=== PATIENT | female | born 1985 | race Caucasian/White ===

== ENCOUNTER → 2020-10-27 13:48 | Outpatient (BNVA) | payer BC, SELFPAY | PROVIDERS: Family Provider Nurse Practitioner; PCP Nurse Practitioner; Visit Provider Psychiatry & Neurology Psychiatry | DX: F41.1 Generalized anxiety disorder (principal); F10.21 Alcohol dependence, in remission; F12.21 Cannabis dependence, in remission | CPT/HCPCS: 99204 ==

== ENCOUNTER → 2020-12-12 08:20 | Outpatient (BNVA) | payer BC, SELFPAY | PROVIDERS: Family Provider Nurse Practitioner; PCP Nurse Practitioner; Visit Provider Psychiatry & Neurology Psychiatry | DX: F41.1 Generalized anxiety disorder (principal); F12.21 Cannabis dependence, in remission; F10.21 Alcohol dependence, in remission | CPT/HCPCS: 99214 ==

== ENCOUNTER → 2021-01-15 08:07 | Outpatient (BNVA) | payer BC, SELFPAY | PROVIDERS: Family Provider Nurse Practitioner; PCP Nurse Practitioner; Visit Provider Psychiatry & Neurology Psychiatry | DX: F41.1 Generalized anxiety disorder (principal); F12.21 Cannabis dependence, in remission; F10.21 Alcohol dependence, in remission | CPT/HCPCS: 99214 ==

== ENCOUNTER → 2021-02-13 13:20 | Outpatient (BNVA) | payer BC, SELFPAY | PROVIDERS: Family Provider Nurse Practitioner; PCP Nurse Practitioner; Visit Provider Psychiatry & Neurology Psychiatry | DX: F41.1 Generalized anxiety disorder (principal); F12.21 Cannabis dependence, in remission; F10.21 Alcohol dependence, in remission | CPT/HCPCS: 99214 ==

== ENCOUNTER → 2021-03-20 11:12 | Outpatient (BNVA) | payer BC, SELFPAY | PROVIDERS: Family Provider Nurse Practitioner; PCP Nurse Practitioner; Visit Provider Psychiatry & Neurology Psychiatry | DX: F41.1 Generalized anxiety disorder (principal); F12.21 Cannabis dependence, in remission; F10.21 Alcohol dependence, in remission | CPT/HCPCS: 99213 ==

== ENCOUNTER 2022-12-28 14:57 | Emergency (ER) | payer MEDICAID, SELFPAY ==
[2022-12-28 15:03] VITALS: BP 119/85; PULSE 102; RESP 18; TEMP 37; O2SAT 94
--- NOTE | 2022-12-28 15:16 | XRR_ITS ---
PROCEDURE INFORMATION: Exam: XR Left Elbow Exam date and time: 12/28/2022 3:31 PM Age: 37 years old Clinical indication: Injury or trauma; Fall; Blunt trauma (contusions or hematomas); Elbow; Left; Injury date: Yesterday; Additional info: Pain; Fall TECHNIQUE: Imaging protocol: Radiologic exam of the Left elbow. Views: 3 or more views. COMPARISON: No relevant prior studies available. FINDINGS: Bones/joints: Osseous structures are intact. Negative for fracture. Joint spaces are preserved. Soft tissues: Normal. XR/XR elbow LT min 3V* 29230 IMPRESSION: No acute findings.
--- NOTE | 2022-12-28 15:23 | W.ED.ALCOHOL ---
HPI - Alcohol General: Chief Complaint: Alcohol Stated Complaint: AMS/ SUSPECTED ETOH Time Seen by Provider: 12/28/22 15:03 Source: patient and EMS Mode of arrival: EMS Limitations: other (Alcohol intoxication.) History of Present Illness: See nursing assessment. Patient brought in for alcohol intoxication. She denies any problems right now. She does complain of left elbow pain after fall yesterday. She denies any head trauma or headache. She denies any neck pain or neck trauma. She denies any pain to the back chest abdomen and pelvis or the remainder of her extremities. She states she drank heavily over the last 24 hours. She states she does not drink every day. However, patient claims she did have a seizure after alcohol withdrawal about 2 years ago. See medication list. She denies taking any extra medication. She denies any suicidal or homicidal ideations. She denies any thoughts of harming herself. She does drink alcohol to get drunk. Associated symptoms: Deny abdominal pain, nausea or vomiting Review of Systems Const: Denies: fever(s) or chills Eyes: Denies: change in vision ENMT: Denies: throat pain Card: Denies: chest pain or palpitations Resp: Denies: dyspnea or wheezing GI: Denies: abdominal pain, nausea or vomiting : Denies: flank pain Musc: Denies: neck pain or back pain Skin/Breast: Denies: rash or pruritus Neuro: Reports: other (Patient with moderate alcohol intoxication); Denies: headache(s) or numbness in extremities Psych: Denies: anxiety Nicho/Lymph: Denies: enlarged lymph nodes PFS ED PFSH: Medical History (Updated 12/28/22 @ 17:44 by Roby Briones MD) Alcohol use disorder, severe, in early remission, dependence Cannabis use disorder, severe, in early remission, dependence Major depressive disorder, single episode Psychiatric care Social History (Updated 02/13/21 @ 13:34 by Denis Santiago LPN) Smoking and tobacco status: current every day smoker e-cigarettes E-Cigarette Details: with nicotine E-cig/vape details: 2-3 x /hr - 50 mg/30/ml Quit status (tobacco): has tried quititng Number of times tried to quit tobacco: 4 Second hand smoke exposure: No Current gender identity: Female Physical Exam Const: COMMON NORMALS: no acute distress, patient oriented x3 and well nourished GENERAL APPEARANCE: cooperative HENMT: COMMON NORMALS: normocephalic and atraumatic HEAD & SCALP: normocephalic and atraumatic FACE & SINUS: normal facial exam Eye: COMMON NORMALS: EOMs intact bilaterally Neck/C-Spine: COMMON NORMALS: full ROM, no lymphadenopathy, supple and no meningeal signs GENERAL: Yes normal visual inspection Lymph: LYMPHATIC: no lymphadenopathy noted Chest: COMMONS NORMALS: normal inspection of the chest and normal palpation of entire chest wall CHEST: No Ecchymosis present and No rash Resp: COMMON NORMALS: normal respiratory effort, No retractions and clear to auscultation bilaterally EFFORT & INSPECTION: No respiratory distress AUSCULTATION: clear to auscultation bilaterally Cardio: COMMON NORMALS: regular rhythm and Peripheral pulses 2+ throughout JUGULAR VENOUS DISTENTION: no JVD RATE: tachycardic (Mild) RHYTHM: regular rhythm PERIPHERAL PULSES: Peripheral pulses 2+ throughout GI: COMMON NORMALS: Normal to inspection, nondistended, normoactive bowel sounds present and non-tender : COMMON NORMALS: Yes no CVA tenderness BLADDER/KIDNEY EXAM: Yes no CVA tenderness Back/Pelvis: COMMON NORMALS: no CVA tenderness Extremity: COMMON NORMALS: full ROM and capillary refill normal OTHER: Superficial abrasion and recent ecchymosis to left olecranon. Normal range of motion of left elbow without pain or crepitus. No soft tissue swelling. Neuro: COMMON NORMALS: patient oriented x3, CN's II-XII intact bilaterally, no focal motor deficits and no sensory deficits noted MENINGEAL SIGNS: Yes no meningeal signs Psych: COMMON NORMALS: mental status grossly normal and Normal thought process present THOUGHT PROCESS: Normal thought process present Skin: COMMON NORMALS: no rashes or lesions noted GENERAL SKIN EXAM: no rashes or lesions noted OTHER: Ecchymosis and superficial abrasion to the left olecranon area. Course Vital Signs: Vital signs: Vital Signs Temperature 98.6 F 12/28/22 15:03 Pulse Rate 105 H 12/28/22 20:36 Respiratory Rate 16 12/28/22 19:07 Blood Pressure 124/81 12/28/22 20:36 Pulse Oximetry 95 12/28/22 20:36 Oxygen Delivery Me thod 12/28/22 20:36 MDM - Alcohol Medical Decision Making Patient with alcohol intoxication. Present alcohol level is 427. Patient does have a history of seizures with alcohol withdrawal. Patient will need to be observed in the hospital overnight. 1741: Paged Dr. uMrray about observation. 1803: D/w Dr. Murray. He states patient can stay in the emergency room and become more sober and then be discharged in the emergency room. He states patient does not need to be admitted to the hospital at this time. Therefore, we will hold the patient to emergency room. 2049: Patient much more alert now. She is not as intoxicated. She is talking clearly. We will recheck alcohol level. 2139: Patient much improved. Alcohol level now is 270. Patient is awake and alert. She is obviously used to high alcohol levels. I think patient is safe to go home this point I did discuss with her that I will write prescriptions for her for alcohol withdrawal to fill tomorrow. Lab Data 12/28/22 15:32 12/28/22 15:32 Radiology Impressions Elbow X-Ray 12/28/22 15:16 IMPRESSION: No acute findings. Laboratory Results WBC 8.3 10^3/uL (4.0-10.0) 12/28/22 15:32 RBC 4.42 10^6/uL (4.1-5.3) 12/28/22 15:32 Hgb 13.2 g/dL (11.5-15.3) 12/28/22 15:32 Hct 38.8 % (37.0-47.0) 12/28/22 15: MCV 87.8 fl (81-99) 12/28/22 15:32 MCH 29.9 pg (28.0-34.0) 12/28/22 15:32 MCHC 34.0 g/dL (30.0-36.0) 12/28/22 15:32 RDW 14.2 % (12.1-15.1) 12/28/22 15:32 Plt Count 266 10^3/cmm (130-400) 12/28/22 15:32 MPV 8.5 fL (7.4-10.4) 12/28/22 15:32 Neut % (Auto) 61.8 % 12/28/22 15:32 Lymph % (Auto) 31.9 % 12/28/22 15:32 [place] % (Auto) 5.1 % 12/28/22 15:32 Eos % (Auto) 0.4 % 12/28/22 15:32 Baso % (Auto) 0.4 % 12/28/22 15:32 Neut # (Auto) 5.11 10^3/uL (1.8-7.7) 12/28/22 15:32 Lymph # (Auto) 2.6 10^3/uL (0.8-4.8) 12/28/22 15:32 [place] # (Auto) 0.4 10^3/uL (0.2-0.9) 12/28/22 15:32 Eos # (Auto) 0.0 10^3/uL (0.0-0.8) 12/28/22 15:32 Baso # (Auto) 0.0 10^3/uL (0.0-0.1) 12/28/22 15:32 Nucleated RBC % (auto) 0 % 12/28/22 15:32 Nucleated RBCs # 0.0 /100WBC 12/28/22 15:32 Sodium 146 mmol/L (136-145) H 12/28/22 15:32 Potassium 3.5 mmol/L (3.5-5.1) 12/28/22 15:32 Chloride 107 mmol/L (98-107) 12/28/22 15:32 Carbon Dioxide 25 mmol/L (22-29) 12/28/22 15:32 Anion Gap 17.5 (5-19) 12/28/22 15:32 BUN 12 mg/dL (6-20) 12/28/22 15:32 Creatinine 0.5 mg/dL (0.5-0.9) 12/28/22 15:32 GFR Calculation 137.4 mL/min (90-130) H 12/28/22 15:32 Glucose 124 mg/dL (65-115) H 12/28/22 15:32 Calculated Osmolality 303 mOsm/kg (285-295) H 12/28/22 15:32 Calcium 7.8 mg/dL (8.5-10.5) L 12/28/22 15:32 Total Bilirubin 0.3 mg/dL (0.15-1.2) 12/28/22 15:32 AST 52 U/L (0-32) H 12/28/22 15:32 ALT 37 U/L (0-33) H 12/28/22 15:32 Alkaline Phosphatase 118 U/L (35-105) H 12/28/22 15:32 Total Protein 6.1 g/dL (6.6-8.7) L 12/28/22 15:32 Albumin 3.5 g/dL (3.5-5.2) 12/28/22 15:32 Globulin 2.6 g/dL (1.3-4.6) 12/28/22 15:32 HCG, Qual Negative (Negative) 12/28/22 15:32 Salicylates < 0.3 mg/dL (3-10) L 12/28/22 15:32 Acetaminophen < 5.0 ug/mL (10-30) L 12/28/22 15:32 Ethyl Alcohol 274 mg/dL (0-10) H 12/28/22 21:00 Imaging Data Xray Ortho: Radiologist's impression: Procedure(s): XR elbow LT min 3V* [id number] Accession Number(s): [id number] Report Number: [id number] PROCEDURE INFORMATION: Exam: XR Left Elbow Exam date and time: 12/28/2022 3:31 PM Age: 37 years old Clinical indication: Injury or trauma; Fall; Blunt trauma (contusions or hematomas); Elbow; Left; Injury date: Yesterday; Additional info: Pain; Fall TECHNIQUE: Imaging protocol: Radiologic exam of the Left elbow. Views: 3 or more views. COMPARISON: No relevant prior studies available. FINDINGS: Bones/joints: Osseous structures are intact. Negative for fracture. Joint spaces are preserved. Soft tissues: Normal. XR/XR elbow LT min 3V* [id number] IMPRESSION: No acute findings. ? Dictated By: Barrie Cantu DO Signed By: Barrie Cantu DO Signed Date/Time: 12/28/22 1552 EKG Data EKG 1: Other EKG changes: Patient refused EKG. Discharge Plan Discharge Patient Disposition: Home Clinical Impression: Alcoholic intoxication Qualifiers: Complication of substance-induced condition: uncomplicated Qualified Code(s): F10.920 - Alcohol use, unspecified with intoxication, uncomplicated Contusion of elbow, left Qualifiers: Encounter type: initial encounter Qualified Code(s): S50.02XA - Contusion of left elbow, initial encounter Condition: Stable Prescriptions: New thiamine HCl (vitamin B1) 100 mg tablet 50 mg PO DAILY Qty: 10 1RF chlordiazepoxide HCl 25 mg capsule 25 mg PO Q6H PRN (Reason: anxiety) Qty: 12 0RF Rx Instructions: Do not take with alcohol. No Action naltrexone 50 mg tablet 50 mg PO DAILY Qty: 30 2RF hydroxyzine HCl 50 mg tablet 50 mg PO BID Qty: 60 2RF prazosin 2 mg capsule 2 mg PO .at bedtime Qty: 30 2RF fluoxetine [Prozac] 40 mg capsule 40 mg PO DAILY Qty: 30 2RF Discharge Orders: Discharge ED (Routine); Ordered 12/28/22 Ordered By: Roby Briones Referrals: Huyen Negron, PSYCHOTHERAPIST SOCIAL WORKER-C [Primary Care Provider] - 1-3 days Discharge Diet: Advance as tolerated Discharge Activity: Increase activity as tolerated Patient Instructions: Alcohol Intoxication (ED), Abuse of Alcohol (ED), Contusion in Adults (ED) Activity Restrictions/Additional Instructions: Avoid alcohol use. May take Librium every 6 hours as needed for anxiety. Take thiamine once daily. Drink plenty fluids. X-rays of your left elbow were negative for fracture or dislocation. Follow-up with family doctor as needed. Coding Level of Care Code ED Supervisor Public Message Service for Yessi Garnica
--- NOTE | 2022-12-28 15:37 | PC.NURSE ---
PATIENT REFUSED EKG. PROVIDER NOTIFIED.
--- NOTE | 2022-12-28 15:37 | PC.NURSE ---
NURSE ATTEMPTED TO START IV. PATIENT FLINCHED AWAY FROM NURSE AND IV START AND IV ACCESS WAS LOST. PATIENT STATED THAT NURSE WOULD NOT START ANOTHER IV AND CALLED STATED THAT NURSE WAS BEING A BITCH. CHARGE NURSE NOTIFIED AND STARTED IV ACCESS.
[2022-12-28 15:43] LABS: Basophils % 0.4 %; Eosinophils % 0.4 %; Hematocrit 38.8 % (37.0-47.0); Hemoglobin 13.2 g/dL (11.5-15.3); Lymphocytes # 2.6 10^3/uL (0.8-4.8); Lymphocytes % 31.9 %; Mean Corpuscular Hemoglobin 29.9 pg (28.0-34.0); Mean Corpuscular Volume 87.8 fl (81-99); Mean Platelet Volume 8.5 fL (7.4-10.4); Monocytes # 0.4 10^3/uL (0.2-0.9); Monocytes % 5.1 %; Neutrophils # 5.11 10^3/uL (1.8-7.7); Neutrophils % 61.8 %; Nucleated Red Blood Cells % 0 %; Platelet Count 266 10^3/cmm (130-400); Red Blood Count 4.42 10^6/uL (4.1-5.3); Red Cell Distribution Width 14.2 % (12.1-15.1); White Blood Count 8.3 10^3/uL (4.0-10.0)
[2022-12-28 16:09] LABS: Alanine Aminotransferase 37 U/L (0-33); Albumin Level 3.5 g/dL (3.5-5.2); Alkaline Phosphatase 118 U/L (35-105); Anion Gap 17.5 (5-19); Aspartate Amino Transferase 52 U/L (0-32); Blood Urea Nitrogen 12 mg/dL (6-20); Calcium 7.8 mg/dL (8.5-10.5); Carbon Dioxide 25 mmol/L (22-29); Chloride 107 mmol/L (98-107); Globulin 2.6 g/dL (1.3-4.6); Glomerular Filtration Rate 137.4 mL/min (90-130); Glucose 124 mg/dL (65-115); Osmolality Calculated 303 mOsm/kg (285-295); Potassium 3.5 mmol/L (3.5-5.1); Sodium 146 mmol/L (136-145); Total Bilirubin 0.3 mg/dL (0.15-1.2); Total Protein 6.1 g/dL (6.6-8.7)
[2022-12-28 16:11] LABS: Acetaminophen < 5.0 ug/mL (10-30); Salicylate < 0.3 mg/dL (3-10)
[2022-12-28 16:12] LABS: Alcohol Level 427 mg/dL (0-10)
[2022-12-28] MEDS: folic acid 1 MG, multivitamin inj 10 ML, thiamine 100 MG in sodium chloride 0.9% 1,000 ML 1000 MG IV (16:12)
[2022-12-28 16:36] LABS: HCG, Serum Qual Negative (Negative)
[2022-12-28 16:46] VITALS: PULSE 89; RESP 16; O2SAT 96
[2022-12-28] MEDS: lactated ringers 1,000 ML 999 ML IV (18:24)
[2022-12-28 19:07] VITALS: PULSE 83; RESP 16; O2SAT 96
[2022-12-28 20:36] VITALS: BP 124/81; PULSE 105; O2SAT 95
[2022-12-28 21:27] LABS: Alcohol Level 274 mg/dL (0-10)
[2022-12-28 22:56] VITALS: BP 123/73; PULSE 115; O2SAT 98
== END 2022-12-28 22:57 | disposition home or self-care (01) ==
PROVIDERS: Emergency Provider Family Medicine; PCP Nurse Practitioner
DX: F10.920 Alcohol use, unspecified with intoxication, uncomplicated (principal); S50.02XA Contusion of left elbow, initial encounter; F17.290 Nicotine dependence, other tobacco product, uncomplicated; W19.XXXA Unspecified fall, initial encounter; Y90.8 Blood alcohol level of 240 mg/100 ml or more
CPT/HCPCS: 36415; 73080; 80053; 80307; 84703; 85025; 96360; 96361; 99285; J3411; J3490; J7030; J7120

== ENCOUNTER 2022-12-29 03:38 | Inpatient (IN) | payer MEDICAID, SELFPAY ==
[2022-12-29] VITALS (33 sets, daily range): BP systolic 103–155; BP diastolic 60–99; PULSE 74–143; RESP 16–32; TEMP 36.2–37.3; O2SAT 90–98; BMI 34.3; BMI 37.5
--- NOTE | 2022-12-29 03:42 | XRR_ITS ---
PROCEDURE INFORMATION: Exam: XR Chest Exam date and time: 12/29/2022 3:49 AM Age: 37 years old Clinical indication: Chest pressure; Patient HX: C/O chest pain. Tachycardic on monitor. ; Additional info: CO TECHNIQUE: Imaging protocol: Radiologic exam of the chest. Views: 1 view. COMPARISON: No relevant prior studies available. FINDINGS: Lungs: No consolidation. Pleural spaces: No pleural effusion. No pneumothorax. Heart/Mediastinum: No cardiomegaly. Bones/joints: No acute fracture. XR/XR chest 1V portable [id number] IMPRESSION: No acute cardiopulmonary findings.
--- NOTE | 2022-12-29 03:44 | ECG_ITS ---
[facility] Test Date: 2022-12-29 Pat Name: Priya Morataya Department: Room: ICU11 Gender: Female Pattern Illustrator: : 1985 Requested By: Mona Graham Order Number: [id number] Sabi MD: Leila Westfall M.D. Measurements Intervals [place] Rate: 143 P: 50 MO: 125 QRS: -14 QRSD: 79 T: 47 QT: 294 QTc: 454 Interpretive Statements SINUS TACHYCARDIA POSSIBLE ANTERIOR MYOCARDIAL INFARCTION , PROBABLY OLD [30 ms Q WAVE IN V3/V4, OR R < 0.2 mV IN V4] No previous ECG available for comparison Electronically Signed On 12-29-2022 12:54:32 DRY CLEANER HELPER by Leila Westfall M.D. [id number]
--- NOTE | 2022-12-29 03:44 | W.ED.CHESTPA ---
HPI - Chest Pain General: Chief Complaint: Chest Pain Stated Complaint: cp Time Seen by Provider: 12/29/22 03:40 Source: patient Mode of arrival: ambulatory Limitations: no limitations History of Present Illness: 37-year-old female is a chronic alcoholic states she has been sober and has been binge drinking again for the last 2 weeks she was seen here yesterday for alcohol intoxication she states that she has not had a drink since yesterday she states that she started having some palpitations along with a tremor and chest pain. She denies any vomiting states the pain is across her chest and is fluttering in nature. She denies any worsening proving factors. Denies any fever. Associated symptoms: Reports palpitations; Deny abdominal pain, dyspnea, fever(s), nausea or vomiting Review of Systems Const: Denies: fever(s), chills, body aches or change in appetite Eyes: Denies: blurry vision or eye discomfort ENMT: Denies: throat pain or dental pain Card: Reports: chest pain and palpitations Resp: Denies: dyspnea GI: Denies: abdominal pain, nausea, vomiting or diarrhea : Denies: dysuria Musc: Denies: neck pain or back pain Skin/Breast: Denies: rash Neuro: Denies: headache(s) Psych: Denies: depression Nicho/Lymph: Denies: easy bruising All/Imm: Denies: urticaria PFSH ED PFSH: Medical History Alcohol use disorder, severe, in early remission, dependence Cannabis use disorder, severe, in early remission, dependence Major depressive disorder, single episode Psychiatric care Social History Smoking and tobacco status: current every day smoker e-cigarettes E-Cigarette Details: with nicotine E-cig/vape details: 2-3 x /hr - 50 mg/30/ml Quit status (tobacco): has tried quititng Number of times tried to quit tobacco: 4 Second hand smoke exposure: No Current gender identity: Female Physical Exam Const: COMMON NORMALS: patient oriented x3 GENERAL APPEARANCE: ill appearing HENMT: COMMON NORMALS: normocephalic and atraumatic HEAD & SCALP: normocephalic and atraumatic Eye: COMMON NORMALS: Equal, round and reactive pupils present and EOMs intact bilaterally PUPIL: Yes Equal, round and reactive pupils present Neck/C-Spine: COMMON NORMALS: full ROM and supple Chest: COMMONS NORMALS: normal inspection of the chest and normal palpation of entire chest wall Resp: COMMON NORMALS: normal respiratory effort, No retractions, No use of accessory muscles and clear to auscultation bilaterally AUSCULTATION: clear to auscultation bilaterally Cardio: COMMON NORMALS: regular rhythm and No murmurs present (Cardio) RATE: tachycardic RHYTHM: regular rhythm GI: COMMON NORMALS: Normal to inspection, nondistended, normoactive bowel sounds present, Soft to palpation, non-tender and no masses PALPATION: Yes Soft to palpation Extremity: COMMON NORMALS: normal to inspection and full ROM Neuro: COMMON NORMALS: patient oriented x3, moves all extremities and no focal motor deficits Psych: COMMON NORMALS: mental status grossly normal, Normal thought process present and cooperative THOUGHT PROCESS: Normal thought process present Skin: COMMON NORMALS: no rashes or lesions noted and no wounds GENERAL SKIN EXAM: no rashes or lesions noted Course Vital Signs: Vital signs: Vital Signs Temperature 97.1 F L 12/29/22 03:51 Pulse Rate 127 H 12/29/22 04:54 Respiratory Rate 16 12/29/22 04:54 Blood Pressure 155/68 12/29/22 04:54 Pulse Oximetry 98 12/29/22 04:54 Oxygen Delivery Me thod 12/29/22 04:54 MDM - Chest Pain Medical Decision Making Patient presents here in alcohol withdrawal she is tremors tachycardia she is given multiple dose of Ativan some improvement in her tachycardia its in the 120s currently. Her alcohol level is down to 75 from the 400s yesterday she also has a leukocytosis that is new from yesterday as well I believe is from stress reaction from her withdrawals. Spoke to the hospitalist will admit the ICU. Lab Data 12/29/22 03:50 12/29/22 03:50 Radiology Impressions Chest X-Ray 12/29/22 03:42 IMPRESSION: No acute cardiopulmonary findings. Laboratory Results WBC 27.5 10^3/uL (4.0-10.0) H 12/29/22 03:50 RBC 3.98 10^6/uL (4.1-5.3) L 12/29/22 03:50 Hgb 12.0 g/dL (11.5-15.3) 12/29/22 03:50 Hct 35.4 % (37.0-47.0) L 12/29/22 03:50 MCV 88.9 fl (81-99) 12/29/22 03:50 MCH 30.2 pg (28.0-34.0) 12/29/22 03:50 MCHC 33.9 g/dL (30.0-36.0) 12/29/22 03:50 RDW 14.0 % (12.1-15.1) 12/29/22 03:50 Plt Count 301 10^3/cmm (130-400) 12/29/22 03:50 MPV 9.2 fL (7.4-10.4) 12/29/22 03:50 Lymph % (Auto) Not Reportable 12/29/22 03:50 [place] % (Auto) Not Reportable 12/29/22 03:50 Lymph # (Auto) Not Reportable 12/29/22 03:50 [place] # (Auto) Not Reportable 12/29/22 03:50 Total Counted 100 (0-100) 12/29/22 03:50 Atypical Lymphs % Not Reportable 12/29/22 03:50 Segmented Neutrophils 86 % 12/29/22 03:50 Abs Segm Neuts (Man) 23.7 10/cmm (1.6-7.1) H 12/29/22 03:50 Band Neutrophils 3.0 % 12/29/22 03:50 Abs Band Neuts (Man) 0.8 10^3/cmm (0.0-1.2) 12/29/22 03:50 Lymphocytes (Manual) 8 % 12/29/22 03:50 Monocytes (Manual) 2.0 % 12/29/22 03:50 Absolute Monocytes 0.6 10^3/cmm (0.1-0.6) 12/29/22 03:50 Eosinophils (Manual) 1 % 12/29/22 03:50 Absolute Eosinophils 0.2 10^3/cmm (0.0-0.7) 12/29/22 03:50 Basophils (Manual) Not Reportable 12/29/22 03:50 Toxic Granulation 1+ H 12/29/22 03:50 Platelet Estimate Not Reportable 12/29/22 03:50 Sodium 140 mmol/L (136-145) 12/29/22 03:50 Potassium 3.5 mmol/L (3.5-5.1) 12/29/22 03:50 Chloride 100 mmol/L (98-107) 12/29/22 03:50 Carbon Dioxide 18 mmol/L (22-29) L 12/29/22 03:50 Anion Gap 25.5 (5-19) H 12/29/22 03:50 BUN 14 mg/dL (6-20) 12/29/22 03:50 Creatinine 0.6 mg/dL (0.5-0.9) 12/29/22 03:50 GFR Calculation 111.3 mL/min (90-130) 12/29/22 03:50 Glucose 148 mg/dL (65-115) H 12/29/22 03:50 Calculated Osmolality 293 mOsm/kg (285-295) 12/29/22 03:50 Calcium 7.2 mg/dL (8.5-10.5) L 12/29/22 03:50 Total Bilirubin 0.7 mg/dL (0.15-1.2) 12/29/22 03:50 AST 86 U/L (0-32) H 12/29/22 03:50 ALT 45 U/L (0-33) H 12/29/22 03:50 Alkaline Phosphatase 112 U/L (35-105) H 12/29/22 03:50 Troponin T Baseline 6 ng/L (0-10) 12/29/22 03:50 Total Protein 6.0 g/dL (6.6-8.7) L 12/29/22 03:50 Albumin 3.5 g/dL (3.5-5.2) 12/29/22 03:50 Globulin 2.5 g/dL (1.3-4.6) 12/29/22 03:50 Lipase 16 U/L (13-60) 12/29/22 03:50 Ethyl Alcohol 75 mg/dL (0-10) H 12/29/22 03:50 EKG Data EKG 1: I personally reviewed and interpreted this EKG as follows: EKG interpretation date: 12/29/22 EKG interpretation time: 03:44 Interpretation: sinus tach hr [address] or t wave abonrmalities qrs 79 qtc 377 Critical Care Time Critical Care Time: Critical Care Time: Yes Total Critical Care Time: 40 Attestation: The high probability of a clinically significant, sudden or life threatening deterioration of the patient's cvsystem(s) required my full and direct attention, intervention and personal management. The critical care time is as shown. This time is in addition to time spent performing any reported procedures but includes the following: [x] Data and vital sign review and interpretation [x] Patient assessment, examination and intervention [x] Documentation [x] Medication orders and management Discharge Plan Discharge Patient Disposition: Admitted As Inpatient Clinical Impression: Alcohol withdrawal Condition: Stable Coding Level of Care Code ED Monogram Technician for Yessi Garnica
[2022-12-29] MEDS: multivitamin therapeutic Tablet 1 TAB PO ×2 (03:50→08:54)
[2022-12-29] MEDS: LORazepam 2 mg/mL INJ 1 mL IVP ×7 (03:50→21:30)
[2022-12-29] MEDS: sodium chloride 0.9% 1,000 ML 999 ML IV (03:50)
[2022-12-29 04:19] LABS: Alanine Aminotransferase 45 U/L (0-33); Albumin Level 3.5 g/dL (3.5-5.2); Alcohol Level 75 mg/dL (0-10); Alkaline Phosphatase 112 U/L (35-105); Anion Gap 25.5 (5-19); Aspartate Amino Transferase 86 U/L (0-32); Blood Urea Nitrogen 14 mg/dL (6-20); Calcium 7.2 mg/dL (8.5-10.5); Carbon Dioxide 18 mmol/L (22-29); Chloride 100 mmol/L (98-107); Globulin 2.5 g/dL (1.3-4.6); Glomerular Filtration Rate 111.3 mL/min (90-130); Glucose 148 mg/dL (65-115); Lipase 16 U/L (13-60); Osmolality Calculated 293 mOsm/kg (285-295); Potassium 3.5 mmol/L (3.5-5.1); Sodium 140 mmol/L (136-145); Total Bilirubin 0.7 mg/dL (0.15-1.2)
[2022-12-29 04:20] LABS: Troponin(5th) Baseline 6 ng/L (0-10)
[2022-12-29 04:25] LABS: Hematocrit 35.4 % (37.0-47.0); Mean Corpuscular HGB Conc 33.9 g/dL (30.0-36.0); Mean Corpuscular Hemoglobin 30.2 pg (28.0-34.0); Mean Corpuscular Volume 88.9 fl (81-99); Mean Platelet Volume 9.2 fL (7.4-10.4); Platelet Count 301 10^3/cmm (130-400); Red Blood Count 3.98 10^6/uL (4.1-5.3); White Blood Count 27.5 10^3/uL (4.0-10.0)
[2022-12-29 04:47] LABS: Absolute Segmented Neutrophil 23.7 10/cmm (1.6-7.1); Band Neutrophils Absolute 0.8 10^3/cmm (0.0-1.2); Segmented Neutrophils 86 %; Total Cells Counted 100 (0-100)
[2022-12-29 04:48] LABS: Absolute Eosinophils 0.2 10^3/cmm (0.0-0.7); Eosinophils 1 %; Lymphocytes 8 %; Monocytes Absolute 0.6 10^3/cmm (0.1-0.6); Toxic Granulation 1+
[2022-12-29 05:08] LABS: Ketone (Acetest) Serum Negative (Negative)
--- NOTE | 2022-12-29 05:14 | PM.HP ---
Providers/Chief Complaint Primary Care Provider: SHIVA Andersen Chief Complaint: cp History of Present Illness Priya Morataya is a 37 year old female With past medical history of alcohol abuse disorder, was discharged yesterday from the ER after being managed for alcohol intoxication She is a resident of [place] and was walking back home, as she had no ride.She came back to the ER as she was not feeling well. When I interacted with the patient she was complaining of severe headache, she was also having bilateral upper extremity tremor, she is tachycardic, tachypneic, hypertensive,ypothermic Upon arrival in the ER she was found to be tachycardic, tremulous. Pertinent labs has shown significant leukocytosis, increased anion gap metabolic acidosis, lactic acidosis. She is currently being admitted for management of alcohol withdrawal And monitoring for possibly developing DTs. Her pertinent labs: X-ray chest: No acute findings WBC 27.5, H&H 12/35, PLT : 301 Serum sodium 140 serum potassium 3.5 BUN 14 serum creatinine 0.6 serum bicarb 18 anion gap 25 lactic acid 7.8 , serum ketone negative, AST 86 ALT 45, ALP 112, urinalysis results appreciated. Patient received 1 L normal saline ,as well as thiamine and Ativan IV IN ER. Review of Systems General: Reports: 10 or more systems reviewed and unremarkable except in HPI and below Const: Denies: fever(s), chills, body aches, change in appetite or diaphoresis Card: Denies: palpitations, edema, swelling of feet/ankles, dyspnea on exertion, orthopnea or leg pain with exertion Resp: Denies: dyspnea, productive cough, wheezing or pain on inspiration GI: Denies: abdominal pain, nausea, vomiting, diarrhea or constipation : Denies: flank pain Musc: Denies: back pain, extremity pain or extremity swelling Neuro: Reports: headache(s); Denies: difficulty walking or confusion Medications/Allergies Home Medications Medication Instructions Recorded Confirmed Last Taken Type fluoxetine 40 mg capsule (Prozac) 40 mg PO DAILY #30 caps 10/27/22 10/27/22 Unknown Rx hydroxyzine HCl 50 mg tablet 50 mg PO BID #60 tabs 10/27/22 10/27/22 Unknown Rx naltrexone 50 mg tablet 50 mg PO DAILY #30 tabs 10/27/22 10/27/22 Unknown Rx prazosin 2 mg capsule 2 mg PO .at bedtime #30 caps 10/27/22 10/27/22 Unknown Rx chlordiazepoxide HCl 25 mg capsule 25 mg PO Q6H PRN anxiety #12 caps 12/28/22 Unknown Rx thiamine HCl (vitamin B1) 100 mg 50 mg PO DAILY #10 tabs 12/28/22 Unknown Rx tablet Allergies Allergy/AdvReac Type Severity Reaction Status Date / Time No Known Allergies Allergy Verified 10/27/22 11:32 PFSH Acute PFSH: Medical History Alcohol use disorder, severe, in early remission, dependence Cannabis use disorder, severe, in early remission, dependence Major depressive disorder, single episode Psychiatric care Social History Smoking and tobacco status: current every day smoker e-cigarettes E-Cigarette Details: with nicotine E-cig/vape details: 2-3 x /hr - 50 mg/30/ml Quit status (tobacco): has tried quititng Number of times tried to quit tobacco: 4 Second hand smoke exposure: No Current gender identity: Female Vitals/I&O/Wt Last Vital Signs Temp 97.1 F L 12/29/22 03:51 Pulse 127 H 12/29/22 04:54 Resp 16 12/29/22 04:54 BP 155/68 12/29/22 04:54 Pulse Ox 98 12/29/22 04:54 O2 Del Method 12/29/22 04:54 Weight last 48 hrs Weight 90.718 kg Physical Exam Const: COMMON NORMALS: patient oriented x3 HENMT: COMMON NORMALS: normocephalic and atraumatic HEAD & SCALP: normocephalic and atraumatic Resp: COMMON NORMALS: normal respiratory effort, No retractions, No use of accessory muscles and clear to auscultation bilaterally EFFORT & INSPECTION: Yes symmetric chest movement AUSCULTATION: clear to auscultation bilaterally Cardio: COMMON NORMALS: regular rate, regular rhythm, S1 normal heart sound present, S2 normal heart sound present, No gallops present (Cardio), No murmurs present (Cardio), No rub (Cardio) and Peripheral pulses 2+ throughout RATE: regular rate RHYTHM: regular rhythm HEART SOUNDS: S1 normal heart sound present and S2 normal heart sound present PERIPHERAL PULSES: Peripheral pulses 2+ throughout GI: COMMON NORMALS: Normal to inspection, nondistended, normoactive bowel sounds present, Soft to palpation, non-tender, No hepatosplenomegaly present and no masses AUSCULTATION: Yes normoactive bowel sounds PALPATION: Yes Soft to palpation and Yes No hepatosplenomegaly present RECTAL EXAM: deferred Extremity: COMMON NORMALS: no clubbing, cyanosis or edema and no pedal edema NARRATIVE EXTREMITY EXAM: Bilateral feet skin peeling with erythematous plantar aspect Neuro: COMMON NORMALS: patient oriented x3 Data 12/29/22 03:50 12/29/22 03:50 A&P Assessment and plan (1) Alcohol withdrawal: (2) Leukocytosis: (3) Transaminitis: (4) Increased anion gap metabolic acidosis: (5) Lactic acid acidosis: (6) UTI (urinary tract infection): Plan 37 year old female With past medical history of alcohol abuse disorder, was discharged yesterday from the ER after being managed for alcohol intoxication She is a resident of [place] and was walking back home, as she had no ride.She came back to the ER as she was not feeling well. When I interacted with the patient she was complaining of severe headache, she was also having bilateral upper extremity tremor, she is tachycardic, tachypneic, hypertensive,ypothermic Upon arrival in the ER she was found to be tachycardic, tremulous. Assessment: Alcohol withdrawal monitor for possible development of DTs. Currently on CIWA protocol Aspiration precaution Telemetry monitoring Seizure precaution Continue IV hydration with LR 150 cc an hour On Librium 25 p.o. every 6H On thiamine and folic acid Increased anion gap metabolic acidosis: Possibly secondary to severe dehydration and lactic acidosis Continue IV hydration with LR Monitor BMP Lactic acidosis: Possibly secondary to dehydration Follow blood culture Repeat lactic acid Significant leukocytosis: Plan as above Possible UTI Follow urine culture Empirically has been started on ceftriaxone Attestations Medical Necessity Statement*: Patient is to be in hospital management of alcohol withdrawal.Anticipated length of stay greater than 2 midnights Coding Level of Care Code 79104 Diagnoses Alcohol withdrawal F10.939 Leukocytosis D72.829 Transaminitis R74.01 Increased anion gap metabolic acidosis E87.29 Lactic acid acidosis E87.20 UTI (urinary tract infection) N39.0
[2022-12-29 05:24] LABS: Amphetamines Screen Urine Negative (Negative); Barbiturates Screen Urine Negative (Negative); Benzodiazepines Screen Urine Positive (Negative); Cocaine Screen Urine Negative (Negative); Opiate Screen Urine Negative (Negative); PCP Screen Urine Negative (Negative); THC Screen Urine Negative (Negative)
[2022-12-29 05:24] LABS: Lactate (Lactic Acid level) 7.8 mmol/L (0.5-2.2)
[2022-12-29 05:25] LABS: Blood Urine 3+ (Negative); Ketones Urine 2+ (Negative); Protein Urine Trace (Negative); Specific Gravity, Urine 1.025 (1.005-1.030); Urine Appearance Clear (CLEAR); Urine Color Yellow (Yellow); pH Urine 5 (5-7)
[2022-12-29 05:26] LABS: Add Urine Microscopic? YES; Leukocyte Esterase Urine 2+ (Negative)
[2022-12-29] MEDS: lactated ringers 1,000 ML 100 ML IV ×3 (05:29→19:53)
[2022-12-29] MEDS: enoxaparin 40 mg/0.4 mL Syringe SUBCUT (05:30)
[2022-12-29] MEDS: acetaminophen 325 mg Tablet 650 MG PO ×2 (05:30→20:18)
[2022-12-29 05:31] LABS: Add Urine Culture? No; Bacteria Urine 2+ /hpf
--- NOTE | 2022-12-29 05:42 | ECG_ITS ---
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 Measurements Intervals [place] Rate: 108 P: 33 NV: 147 QRS: 11 QRSD: 89 T: 20 QT: 355 QTc: 476 Interpretive Statements SINUS TACHYCARDIA WITH OCCASIONAL VENTRICULAR PREMATURE COMPLEXES Compared to ECG 12/29/2022 07:41:49 Ventricular premature complex(es) now present Electronically Signed On 12-29-2022 21:04:21 ASSISTANT PROFESSOR OF MATHEMATICS by Leila Westfall M.D. [email or web address] medical [email or web address] Buddy/store/NU/[id number] f
[2022-12-29] MEDS: cefTRIAXone 1,000 MG in sodium chloride 0.9% (plus) 50 ML 100 MG IV (06:13)
[2022-12-29 07:14] LABS: Troponin 5 2HR 6.74 ng/L (0-10)
[2022-12-29 07:25] LABS: Troponin 5 2HR Delta 0.74 ABS# (0-10)
--- NOTE | 2022-12-29 07:40 | PC.PHAR ---
pt states she takes care of her own medications-pt states she never got the chlordiazepoxide hcl 25mg q6h prn and vitamin b1 50mg daily both written on 12/28/22-pt states she no longer takes prazosin 2mg hs ext med history shows last filled 10/27/22 30d/s-pt states she has been out of her naltrexone 50mg daily for about a week ext med history shows last filled 10/27/22 30d/s-pt state she takes hydroxyzine hcl 50mg bid prn rx filled for 50mg bid on 10/27/22 30d/s-notes are made in the pharmacy comments
[2022-12-29] MEDS: fluoxetine 20 mg Capsule 40 MG PO (08:54)
[2022-12-29] MEDS: folic acid 1 mg Tablet PO (08:54)
[2022-12-29] MEDS: thiamine 100 mg Tablet PO (08:54)
[2022-12-29] MEDS: chlordiazePOXIDE 25 mg Capsule PO ×5 (08:54→17:23)
--- NOTE | 2022-12-29 09:42 | ECG_ITS ---
[facility] Test Date: 2022-12-29 Pat Name: Priya Morataya Department: Room: ICU11 Gender: Female Health Psychologist: : 1985 Requested By: Mona Graham Order Number: [id number] Sabi MD: Leila Westfall M.D. Measurements Intervals [place] Rate: 133 P: 70 IL: 137 QRS: 48 QRSD: 86 T: 38 QT: 319 QTc: 475 Interpretive Statements SINUS TACHYCARDIA LOW QRS VOLTAGE IN PRECORDIAL LEADS [QRS DEFLECTION < 1.0 mV IN CHEST LEADS] ABNORMAL RHYTHM ECG Compared to ECG 12/29/2022 03:44:39 Low QRS voltage now present Myocardial infarct finding no longer present Electronically Signed On 12-29-2022 12:56:42 METER AND SERVICE LINE INSPECTOR by Leila Westfall M.D. [id number]
[2022-12-29 11:13] LABS: Troponin 5 6HR Delta 0 ng/L (0-12)
--- NOTE | 2022-12-29 14:48 | P.PN_ITS ---
Subjective Subjective: This morning she is feeling very tremulous, jittery, is also hypotensive, tachycardic. Ativan of some help, but not lasting long enough, and was ordered every 4 hours. He is lucid and appears to have good insight. Reports has had severe withdrawal in the past, including having a seizure. Reports plans to attend rehabilitation after she recovers. Denies any headache, vision changes. Earlier was reported to have hallucinations. Denies shortness of breath, cough, chest pain or pressure, nausea or vomiting. He is having liquid diarrhea with multiple stools. Denies blood in stool or melena. Denies urinary complaints. Vitals/I&O/Wt Last Vital Signs Temp 97.1 F L 12/29/22 03:51 Pulse 79 12/29/22 13:00 Resp 19 H 12/29/22 11:00 BP 103/66 12/29/22 13:00 Pulse Ox 95 12/29/22 13:00 O2 Del Method 12/29/22 08:00 12/28/22 12/29/22 12/29/22 22:59 06:59 14:59 Intake Total 700 / 700 753.333 / 753.333 Balance 700 / 700 753.333 / 753.333 Weight last 48 hrs Weight 99.337 kg Weight 90.718 kg Physical Exam Const: COMMON NORMALS: patient oriented x3 and alert GENERAL APPEARANCE: cooperative ORIENTATION/CONSCIOUSNESS: Yes awake OTHER: Tremulous, jittery, anxious, tachycardic, tachypneic, diaphoretic, uncomfortable, malaised. HENMT: COMMON NORMALS: oropharynx normal Neck/C-Spine: COMMON NORMALS: no JVD Resp: COMMON NORMALS: normal respiratory effort and clear to auscultation bilaterally AUSCULTATION: clear to auscultation bilaterally Cardio: COMMON NORMALS: no JVD, regular rhythm, S1 normal heart sound present, S2 normal heart sound present and No murmurs present (Cardio) RATE: tachycardic RHYTHM: regular rhythm HEART SOUNDS: S1 normal heart sound present and S2 normal heart sound present GI: COMMON NORMALS: Normal to inspection, nondistended, normoactive bowel sounds present, Soft to palpation and non-tender PALPATION: Yes Soft to palpation Extremity: COMMON NORMALS: no joint enlargement and no pedal edema Neuro: COMMON NORMALS: patient oriented x3 and moves all extremities SENSORIUM/ORIENTATION: Yes alert Skin: WOUNDS: Yes wounds noted (Abrasions of epidermis BL distal soles, L worse than R, with few deeper) other (areas into the dermis. Overhanging pieces of loose/sheared off epidermis surrounding wounds. ) Data 12/29/22 03:50 12/29/22 03:50 Micro: Microbiology 12/29/22 06:17 Blood Culture - Preliminary Blood SPECIMEN COLLECTED 12/29/22 06:17 Blood Culture - Preliminary Blood SPECIMEN COLLECTED A&P Assessment and plan (1) Alcohol withdrawal: Severe alcohol withdrawal, delirium tremens with hallucinations, anxiety, tremors, tachycardia, tachypnea, labile blood pressure. Partial response with Librium, some relief from Ativan as well, but not lasting long. Discussed with RN. CIWA scores appreciated. Given additional Librium 25 mg, continue scheduled. Ativan frequency increased to every 2 hours. Continue CIWA protocol. Continue monitoring in ICU. With history of seizure related to withdrawal. Continue seizure precautions. At risk of arrhythmia with severe alcohol drawl. Monitor on telemetry. Continue IV hydration. Subsequently with some improvement but still persistent symptoms, given additional dose of Librium. (2) Leukocytosis: CBC reviewed, appreciated. She is having quite significant diarrhea with multiple liquid bowel movements. Requested C. difficile. Does not appear to have any other obvious source for infection. Does have quite severe abrasions of bilateral soles of feet she states from walking barefoot. Leukocytosis may be related to this, otherwise may also be stress response with severe alcohol withdrawal. Reviewed overnight physician documentation. Reviewed medications, noted to be on ceftriaxone. Continue empirically for now. (3) Transaminitis: Liver parameters reviewed, some further rise of AST, ALT likely related to EtOH. Follow-up liver parameters due to risk of alcoholic hepatitis. INR requested for the morning. Check hepatitis panel. (4) Increased anion gap metabolic acidosis: With lactic acidosis. With severe alcohol withdrawal, alcohol abuse, possible liver dysfunction. Follow-up lactic acid requested. (5) Lactic acid acidosis: Lactic acid level reviewed. Has been receiving LR infusion.. Requested repeat. (6) UTI (urinary tract infection): Possible UTI, although UA not particularly impressive. 510 RBC, 5-10 WBC, 10-15 SEC. continues on Rocephin for now. Follow-up urine culture. (7) Abrasion of sole of foot: Quite severe abrasions over bilateral distal soles of feet with excoriation of the epidermis with overhanging pieces, with excavation into dermis and a few areas. Worse on the left. I do not see any obvious foreign bodies. Requesting wound care. Clean daily with soap and water, apply triple antibiotic ointment, nonadherent dressing. States she sustained the abrasions from walking barefoot. Plan Alcohol abuse: She states that she intends to seek rehabilitation. Discussed with case management to offer options. Hypothermia Attestations Medical Necessity Statement*: Continue admission for assessment management of severe alcohol withdrawal. Coding Level of Care Code Critical Care >/= 30 minutes Critical care time (in minutes): 45 The high probability of a clinically significant, sudden or life threatening deterioration, as referenced in this documentation, required my full and direct attention, intervention and personal management. The critical care time shown is in addition to time spent performing any reported separately billable procedures and includes the following: [x] Data and vital sign review and interpretation [x ] Patient assessment, examination and intervention [x] Medication orders and management [x] Patient/Family updates as able [x] Care Coordination and Documentation. Diagnoses Alcohol withdrawal F10.939 Leukocytosis D72.829 Transaminitis R74.01 Increased anion gap metabolic acidosis E87.29 Lactic acid acidosis E87.20 UTI (urinary tract infection) N39.0 Abrasion of sole of foot S90.819A
[2022-12-29 16:41] LABS: Lactate (Lactic Acid level) 2.6 mmol/L (0.5-2.2)
[2022-12-29 16:56] LABS: Hepatitis A Antibody IgM Non-Reactive (Nonreactive); Hepatitis B Core IgM Non-Reactive (Nonreactive); Hepatitis B Surface Antigen Non-Reactive (Nonreactive); Hepatitis C Virus Antibody Non-Reactive (Nonreactive)
[2022-12-29] MEDS: neomycin-poly-bacitracin oint 28 gm 1 APPLIC TOPICAL (20:19)
[2022-12-30] VITALS (21 sets, daily range): BP systolic 112–155; BP diastolic 76–108; PULSE 83–115; RESP 13–20; TEMP 36.8–37.3; O2SAT 87–98
[2022-12-30] MEDS: chlordiazePOXIDE 25 mg Capsule PO ×5 (00:15→23:59)
[2022-12-30] MEDS: LORazepam 2 mg/mL INJ 1 mL IVP ×2 (02:35→19:43)
[2022-12-30] MEDS: lactated ringers 1,000 ML 100 ML IV ×2 (02:46→11:24)
[2022-12-30 03:31] LABS: Basophils % 0.2 %; Eosinophils # 0.1 10^3/uL (0.0-0.8); Eosinophils % 0.5 %; Hematocrit 27.9 % (37.0-47.0); Hemoglobin 9.5 g/dL (11.5-15.3); Lymphocytes # 2.1 10^3/uL (0.8-4.8); Lymphocytes % 19.3 %; Mean Corpuscular HGB Conc 34.1 g/dL (30.0-36.0); Mean Corpuscular Hemoglobin 29.7 pg (28.0-34.0); Mean Corpuscular Volume 87.2 fl (81-99); Mean Platelet Volume 9.2 fL (7.4-10.4); Monocytes # 0.4 10^3/uL (0.2-0.9); Monocytes % 4.1 %; Neutrophils # 8.05 10^3/uL (1.8-7.7); Neutrophils % 75.4 %; Nucleated Red Blood Cells % 0 %; Platelet Count 155 10^3/cmm (130-400); Red Cell Distribution Width 13.9 % (12.1-15.1); White Blood Count 10.7 10^3/uL (4.0-10.0)
[2022-12-30 03:41] LABS: INR 1.08 (0.8-1.2)
[2022-12-30 03:45] LABS: Alanine Aminotransferase 49 U/L (0-33); Albumin Level 2.9 g/dL (3.5-5.2); Alkaline Phosphatase 94 U/L (35-105); Anion Gap 13.8 (5-19); Aspartate Amino Transferase 125 U/L (0-32); Blood Urea Nitrogen 5 mg/dL (6-20); Calcium 7.2 mg/dL (8.5-10.5); Carbon Dioxide 25 mmol/L (22-29); Chloride 100 mmol/L (98-107); Globulin 2.2 g/dL (1.3-4.6); Glomerular Filtration Rate 137.4 mL/min (90-130); Glucose 93 mg/dL (65-115); Magnesium 1.4 mg/dL (1.7-2.3); Osmolality Calculated 279 mOsm/kg (285-295); Sodium 136 mmol/L (136-145); Total Bilirubin 1.1 mg/dL (0.15-1.2); Total Protein 5.1 g/dL (6.6-8.7)
[2022-12-30 04:42] LABS: Creatine Phosphokinase 5082 U/L (26-192); Potassium 2.8 mmol/L (3.5-5.1)
[2022-12-30 05:04] LABS: CKMB 16.1 ng/mL (0-5.34); CKMB Relative Index 0.3 % (0.0-10.4)
[2022-12-30] MEDS: cefTRIAXone 1,000 MG in sodium chloride 0.9% (plus) 50 ML 100 MG IV (05:27)
[2022-12-30] MEDS: enoxaparin 40 mg/0.4 mL Syringe SUBCUT (05:27)
[2022-12-30] MEDS: lidocaine 1% 5 ML in potassium chloride premix 100 ML 26.25 ML IV (05:42)
[2022-12-30] MEDS: multivitamin therapeutic Tablet 1 TAB PO (08:19)
[2022-12-30] MEDS: folic acid 1 mg Tablet PO (08:19)
[2022-12-30] MEDS: fluoxetine 20 mg Capsule 40 MG PO (08:19)
[2022-12-30] MEDS: thiamine 100 mg Tablet PO (08:19)
--- NOTE | 2022-12-30 12:40 | P.PN_ITS ---
Subjective Subjective: Today she is improving. She is not quite as tremulous. Denies hallucinations. Denies any headache, chest pain, trouble breathing, or any other symptoms. Vitals/I&O/Wt Last Vital Signs Temp 99.2 F 12/30/22 04:00 Pulse 102 H 12/30/22 12:00 Resp 17 12/30/22 08:00 BP 127/86 12/30/22 07:00 Pulse Ox 98 12/30/22 12:00 O2 Del Method 12/30/22 04:00 12/29/22 12/30/22 12/30/22 22:59 06:59 14:59 Intake Total 806.667 / 1560.000 928.333 / 2488.333 983.333 / 983.333 Output Total 1950 / 1950 350 / 2300 Balance -1143.333 / -390.000 578.333 / 188.333 983.333 / 983.333 Weight last 48 hrs Weight 99.473 kg Weight 99.337 kg Weight 90.718 kg Physical Exam Const: COMMON NORMALS: patient oriented x3 and alert GENERAL APPEARANCE: cooperative ORIENTATION/CONSCIOUSNESS: Yes awake OTHER: Last tremulous, jittery. Currently appears calm. Tachycardia improved. Diaphoretic. HENMT: COMMON NORMALS: oropharynx normal Neck/C-Spine: COMMON NORMALS: no JVD Resp: COMMON NORMALS: normal respiratory effort and clear to auscultation bilaterally AUSCULTATION: clear to auscultation bilaterally Cardio: COMMON NORMALS: no JVD, regular rhythm, S1 normal heart sound present, S2 normal heart sound present and No murmurs present (Cardio) RATE: tac hycardic RHYTHM: regular rhythm HEART SOUNDS: S1 normal heart sound present and S2 normal heart sound present GI: COMMON NORMALS: Normal to inspection, nondistended, normoactive bowel sounds present, Soft to palpation and non-tender PALPATION: Yes Soft to palpation Extremity: COMMON NORMALS: no joint enlargement and no pedal edema Neuro: COMMON NORMALS: patient oriented x3 and moves all extremities SENSORIUM/ORIENTATION: Yes alert Skin: COMMON NORMALS: no rashes or lesions noted GENERAL SKIN EXAM: no rashes or lesions noted WOUNDS: Yes wounds noted (Abrasions of epidermis BL distal soles, L worse than R, with few deeper) other (areas into the dermis. Overhanging pieces of loose/sheared off epidermis surrounding wounds. ) Data 12/30/22 03:00 12/30/22 03:00 Micro: Microbiology 12/29/22 05:08 Urine Culture - Preliminary Urine,Clean Catch Gram Negative Rods 12/29/22 06:17 Blood Culture - Preliminary Blood NEGATIVE TO DATE 12/29/22 06:17 Blood Culture - Preliminary Blood NEGATIVE TO DATE 12/29/22 11:20 C.difficile Toxin B Gene (PCR) - Final Stool A&P Assessment and plan (1) Alcohol withdrawal: Improving withdrawal. CIWA scores are decreasing. Continue Librium. Continue Ativan per CIWA. Transfer out of ICU. Continue monitoring electrolytes. Noted alcohol induced hepatitis with transaminitis in 2-1 pattern. Monitor mental status. Follow-up transaminases requested. Requesting INR. Noted hypomagnesemia, replacing requested. Noted severe hypokalemia this morning 2.8. Requires close monitoring. Requested follow-up for this afternoon. Noted rhabdomyolysis, CK 5000. Requested follow-up. Severe alcohol withdrawal, delirium tremens with hallucinations, anxiety, tremors, tachycardia, tachypnea, labile blood pressure. Continue IV hydration. (2) Leukocytosis: Appreciate CBC, leukocytosis improving. Treat UTI. Follow-up repeat CBC. She is having quite significant diarrhea with multiple liquid bowel movements. Diarrhea assessed with C. difficile PCR, results reviewed, negative. Does not appear to have any other obvious source for infection. Does have quite severe abrasions of bilateral soles of feet she states from walking barefoot. Leukocytosis may be related to this, otherwise may also be stress response with severe alcohol withdrawal. (3) Transaminitis: Liver parameters reviewed, some further rise of AST, ALT likely related to EtOH. Follow-up liver parameters due to risk of alcoholic hepatitis. INR requested for the morning. Check hepatitis panel. (4) Increased anion gap metabolic acidosis: Improving. Continue rehydration. (5) Lactic acid acidosis: Improving. Continue IV hydration. (6) UTI (urinary tract infection): Reviewed urine culture. Gram-negative rods in urine. Continue ceftriaxone. Fo llow-up culture for ID and sensitivities. (7) Abrasion of sole of foot: Quite severe abrasions over bilateral distal soles of feet with excoriation of the epidermis with overhanging pieces, with excavation into dermis and a few areas. Worse on the left. I do not see any obvious foreign bodies. Requesting wound care. Clean daily with soap and water, apply triple antibiotic ointment, nonadherent dressing. States she sustained the abrasions from walking barefoot. (8) Rhabdomyolysis: CK noted 5082. Continue IV fluid infusion. Follow-up CK requested. Requires close monitoring with IV fluid infusion due to risk of renal injury. Plan Alcohol abuse: She states that she intends to seek rehabilitation. Discussed again with case management, they will offer options. Hypothermia Attestations Medical Necessity Statement*: Continue admission. Management of severe alcohol withdrawal, alcohol induced hepatitis, rhabdomyolysis, at risk of renal failure, at risk of arrhythmia needing continued treatment, telemetry and laboratory monitoring. Diagnoses Alcohol withdrawal F10.939 Leukocytosis D72.829 Transaminitis R74.01 Increased anion gap metabolic acidosis E87.29 Lactic acid acidosis E87.20 UTI (urinary tract infection) N39.0 Abrasion of sole of foot S90.819A Rhabdomyolysis M62.82
[2022-12-30 14:47] LABS: Potassium 3.6 mmol/L (3.5-5.1)
[2022-12-30] MEDS: neomycin-poly-bacitracin oint 28 gm 1 APPLIC TOPICAL (16:58)
[2022-12-30] MEDS: magnesium sulfate premix 4 GM/100 ML PREMIX IV (16:59)
[2022-12-30] MEDS: lactated ringers 1,000 ML 150 ML IV (18:09)
--- NOTE | 2022-12-30 22:17 | PC.NURSE ---
Patient transferred to [place] [id number] via wheelchair. All belongings with patient at time of transfer and placed at bedside. Home medications gave to receiving nurse to be placed in pyxis. All vitals stable at time of transfer.
[2022-12-31] MEDS: LORazepam 2 mg/mL INJ 1 mL IVP ×4 (00:13→15:50)
[2022-12-31] MEDS: lactated ringers 1,000 ML 150 ML IV ×4 (01:14→23:34)
[2022-12-31 04:00] VITALS: BP 123/76; PULSE 88; RESP 17; TEMP 36.8; O2SAT 95
[2022-12-31 05:04] LABS: Basophils % 0.1 %; Eosinophils # 0.2 10^3/uL (0.0-0.8); Eosinophils % 2.5 %; Hematocrit 28.9 % (37.0-47.0); Hemoglobin 9.5 g/dL (11.5-15.3); Lymphocytes # 1.9 10^3/uL (0.8-4.8); Lymphocytes % 26.6 %; Mean Corpuscular HGB Conc 32.9 g/dL (30.0-36.0); Mean Corpuscular Hemoglobin 29.2 pg (28.0-34.0); Mean Corpuscular Volume 88.9 fl (81-99); Mean Platelet Volume 9.3 fL (7.4-10.4); Monocytes # 0.4 10^3/uL (0.2-0.9); Monocytes % 5.1 %; Neutrophils # 4.61 10^3/uL (1.8-7.7); Neutrophils % 65.4 %; Nucleated Red Blood Cells % 0 %; Platelet Count 136 10^3/cmm (130-400); Red Blood Count 3.25 10^6/uL (4.1-5.3); Red Cell Distribution Width 14.2 % (12.1-15.1); White Blood Count 7.1 10^3/uL (4.0-10.0)
[2022-12-31] MEDS: enoxaparin 40 mg/0.4 mL Syringe SUBCUT (05:18)
[2022-12-31] MEDS: cefTRIAXone 1,000 MG in sodium chloride 0.9% (plus) 50 ML 100 MG IV (05:18)
[2022-12-31 05:19] LABS: INR 1.06 (0.8-1.2)
[2022-12-31] MEDS: chlordiazePOXIDE 25 mg Capsule PO ×5 (05:19→23:34)
[2022-12-31 05:27] LABS: Alanine Aminotransferase 53 U/L (0-33); Albumin Level 3.1 g/dL (3.5-5.2); Alkaline Phosphatase 88 U/L (35-105); Anion Gap 14.4 (5-19); Aspartate Amino Transferase 104 U/L (0-32); Blood Urea Nitrogen 3 mg/dL (6-20); Calcium 7.4 mg/dL (8.5-10.5); Carbon Dioxide 27 mmol/L (22-29); Chloride 102 mmol/L (98-107); Globulin 2.4 g/dL (1.3-4.6); Glomerular Filtration Rate 177.7 mL/min (90-130); Glucose 86 mg/dL (65-115); Magnesium 2.3 mg/dL (1.7-2.3); Osmolality Calculated 286 mOsm/kg (285-295); Potassium 3.4 mmol/L (3.5-5.1); Sodium 140 mmol/L (136-145); Total Bilirubin 0.6 mg/dL (0.15-1.2); Total Protein 5.5 g/dL (6.6-8.7)
[2022-12-31 05:48] LABS: Creatine Phosphokinase 3031 U/L (26-192)
[2022-12-31 05:58] VITALS: BMI 37.4
[2022-12-31 06:58] LABS: CKMB 6.7 ng/mL (0-5.34)
[2022-12-31 06:59] LABS: CKMB Relative Index 0.2 % (0.0-10.4)
[2022-12-31 07:57] VITALS: BP 128/87; PULSE 96; RESP 18; TEMP 36.6; O2SAT 98
[2022-12-31] MEDS: thiamine 100 mg Tablet PO (07:57)
[2022-12-31] MEDS: fluoxetine 20 mg Capsule 40 MG PO (07:58)
[2022-12-31] MEDS: multivitamin therapeutic Tablet 1 TAB PO (07:58)
[2022-12-31] MEDS: folic acid 1 mg Tablet PO (07:59)
[2022-12-31] MEDS: neomycin-poly-bacitracin oint 28 gm 1 APPLIC TOPICAL (07:59)
[2022-12-31 12:00] VITALS: BP 143/98; PULSE 116; RESP 18; TEMP 36.7; O2SAT 95
[2022-12-31 16:00] VITALS: BP 156/98; PULSE 96; RESP 18; TEMP 36.7; O2SAT 94
--- NOTE | 2022-12-31 16:32 | P.PN_ITS ---
Subjective Subjective: This morning was feeling much worse, very jittery, troponins, anxious, tachycardic, CIWA score was very elevated. He denies any further hallucinations. Denies any headache, vision changes, no chest pain or pressure no shortness of breath, no abdominal pain, nausea vomiting. Vitals/I&O/Wt Last Vital Signs Temp 98.0 F 12/31/22 16:00 Pulse 96 12/31/22 16:00 Resp 18 12/31/22 16:00 BP 156/98 12/31/22 16:00 Pulse Ox 94 12/31/22 16:00 O2 Del Method 12/31/22 16:00 12/31/22 12/31/22 12/31/22 06:59 14:59 22:59 Intake Total 1050 / 3393.333 1240 / 1240 1000 / 2240 Balance 1050 / 3393.333 1240 / 1240 1000 / 2240 Weight last 48 hrs Weight 98.997 kg Weight 99.473 kg Physical Exam Const: COMMON NORMALS: patient oriented x3 and alert GENERAL APPEARANCE: cooperative ORIENTATION/CONSCIOUSNESS: Yes awake OTHER: Less tremulous, jittery. Currently appears calm. Diaphoretic. HENMT: COMMON NORMALS: oropharynx normal Neck/C-Spine: COMMON NORMALS: no JVD Resp: COMMON NORMALS: normal respiratory effort and clear to auscultation bilaterally AUSCULTATION: clear to auscultation bilaterally Cardio: COMMON NORMALS: no JVD, regular rhythm, S1 normal heart sound present, S2 normal heart sound present and No murmurs present (Cardio) RATE: tachycardic RHYTHM: regular rhythm HEART SOUNDS: S1 normal heart sound p resent and S2 normal heart sound present GI: COMMON NORMALS: Normal to inspection, nondistended, normoactive bowel sounds present, Soft to palpation and non-tender PALPATION: Yes Soft to palpation Extremity: COMMON NORMALS: no joint enlargement and no pedal edema Neuro: COMMON NORMALS: patient oriented x3 and moves all extremities SENSORIUM/ORIENTATION: Yes alert Skin: COMMON NORMALS: no rashes or lesions noted GENERAL SKIN EXAM: no rashes or lesions noted WOUNDS: Yes wounds noted (Abrasions of epidermis BL distal soles, L worse than R, with few deeper) other (areas into the dermis. Overhanging pieces of loose/sheared off epidermis surrounding wounds. ) Data 12/31/22 04:32 12/31/22 04:32 Micro: Microbiology 12/29/22 05:08 Urine Culture - Final Urine,Clean Catch Escherichia coli 12/29/22 11:20 Enteric Pathogens (PCR) - Final Stool A&P Assessment and plan (1) Alcohol withdrawal: Still in withdrawal. We will give additional Librium dose. Continue Librium scheduled, Ativan. Continue monitoring the hospital continue telemetry monitoring with risk of arrhythmia. Transaminases after worsening yesterday today slightly better, AST 104, ALT 53. Reassess liver parameters. Magnesium level reviewed, 2.3. CIWA scores reviewed, last score 18. CK reviewed, rhabdomyolysis improving, CK down to 3031. Requested follow-up. Severe alcohol withdrawal, delirium tremens with hallucinations, anxiety, tremors, tachycardia, tachypnea, labile blood pressure. Continue IV hydration. (2) Leukocytosis: WBC count reviewed, resolved. Treat UTI. Diarrhea assessed with C. difficile PCR, results reviewed, negative. (3) Transaminitis: Reviewed. Now improving. Follow-up Reviewed and negative hepatitis panel. (4) Increased anion gap metabolic acidosis: Improving. Continue rehydration. (5) Lactic acid acidosis: Improving. Continue IV hydration. (6) UTI (urinary tract infection): Reviewed urine culture. Gram-negative rods in urine. Continue ceftriaxone. Follow-up culture for ID and sensitivities. (7) Abrasion of sole of foot: Wounds improving. Not erythematous, without drainage. Continue wound care. Quite severe abrasions over bilateral distal soles of feet with excoriation of the epidermis with overhanging pieces, with excavation into dermis and a few areas. Worse on the left. I do not see any obvious foreign bodies. Requesting wound care. Clean daily with soap and water, apply triple antibiotic ointment, nonadherent dressing. States she sustained the abrasions from walking barefoot. (8) Rhabdomyolysis: Improving. CK down to 3031. Continue IV fluid infusion. Follow-up CK requested. Plan Anemia: With rehydration. Hemoglobin level 9.5. Recheck requested. Check Hemoccult. Diarrhea: C. difficile negative. Reviewed interim bacterial panel, negative. Alcohol abuse: She states that she intends to seek rehabilitation. Discussed again with case management, they will offer options. Hypothermia resolved Attestations Medical Necessity Statement*: Continue admission for assessment management of severe alcohol withdrawal requiring treatment and close monitoring at risk of complications. Diagnoses Alcohol withdrawal F10.939 Leukocytosis D72.829 Transaminitis R74.01 Increased anion gap metabolic acidosis E87.29 Lactic acid acidosis E87.20 UTI (urinary tract infection) N39.0 Abrasion of sole of foot S90.819A Rhabdomyolysis M62.82
[2022-12-31 20:28] VITALS: BP 134/87; PULSE 98; RESP 19; TEMP 36.7; O2SAT 95
[2022-12-31] MEDS: LORazepam 2 mg/mL INJ 1 mL IM (22:55)
[2022-12-31 23:26] VITALS: BP 129/83; PULSE 91; RESP 19; TEMP 36.4; O2SAT 95
[2023-01-01 04:35] VITALS: BP 124/83; PULSE 98; RESP 19; TEMP 36.8; O2SAT 95
[2023-01-01 05:22] LABS: Basophils % 0.1 %; Eosinophils # 0.2 10^3/uL (0.0-0.8); Eosinophils % 2.9 %; Hematocrit 29.2 % (37.0-47.0); Hemoglobin 9.6 g/dL (11.5-15.3); Lymphocytes % 29.2 %; Mean Corpuscular HGB Conc 32.9 g/dL (30.0-36.0); Mean Corpuscular Hemoglobin 29.9 pg (28.0-34.0); Mean Platelet Volume 9.3 fL (7.4-10.4); Monocytes # 0.4 10^3/uL (0.2-0.9); Monocytes % 6.1 %; Neutrophils # 4.24 10^3/uL (1.8-7.7); Neutrophils % 61.3 %; Nucleated Red Blood Cells % 0 %; Platelet Count 164 10^3/cmm (130-400); Red Blood Count 3.21 10^6/uL (4.1-5.3); Red Cell Distribution Width 14.5 % (12.1-15.1); White Blood Count 6.9 10^3/uL (4.0-10.0)
[2023-01-01 05:40] LABS: Alanine Aminotransferase 59 U/L (0-33); Albumin Level 3.2 g/dL (3.5-5.2); Alkaline Phosphatase 81 U/L (35-105); Anion Gap 14.2 (5-19); Aspartate Amino Transferase 95 U/L (0-32); Blood Urea Nitrogen 4 mg/dL (6-20); Calcium 7.9 mg/dL (8.5-10.5); Carbon Dioxide 25 mmol/L (22-29); Chloride 98 mmol/L (98-107); Globulin 2.4 g/dL (1.3-4.6); Glomerular Filtration Rate 137.4 mL/min (90-130); Glucose 88 mg/dL (65-115); Magnesium 2.1 mg/dL (1.7-2.3); Osmolality Calculated 274 mOsm/kg (285-295); Phosphorus 3.6 mg/dL (2.5-4.5); Potassium 3.2 mmol/L (3.5-5.1); Sodium 134 mmol/L (136-145); Total Bilirubin 0.5 mg/dL (0.15-1.2); Total Protein 5.6 g/dL (6.6-8.7)
[2023-01-01 06:06] LABS: Creatine Phosphokinase 1701 U/L (26-192)
[2023-01-01] MEDS: lactated ringers 1,000 ML 150 ML IV (06:07)
[2023-01-01] MEDS: chlordiazePOXIDE 25 mg Capsule PO ×2 (06:07→11:13)
[2023-01-01] MEDS: enoxaparin 40 mg/0.4 mL Syringe SUBCUT (06:07)
[2023-01-01] MEDS: cefTRIAXone 1,000 MG in sodium chloride 0.9% (plus) 50 ML 100 MG IV (06:07)
[2023-01-01] MEDS: LORazepam 2 mg/mL INJ 1 mL IVP (06:25)
[2023-01-01] MEDS: ondansetron 2 mg/ML SDV 2 mL 4 MG IVP (06:25)
[2023-01-01 07:38] VITALS: BP 124/79; PULSE 77; RESP 15; TEMP 36.6; O2SAT 94
[2023-01-01 07:45] LABS: CKMB 6.3 ng/mL (0-5.34)
[2023-01-01 07:46] LABS: CKMB Relative Index 0.3 % (0.0-10.4)
[2023-01-01] MEDS: fluoxetine 20 mg Capsule 40 MG PO (10:00)
[2023-01-01] MEDS: folic acid 1 mg Tablet PO (10:00)
[2023-01-01] MEDS: thiamine 100 mg Tablet PO (10:01)
[2023-01-01] MEDS: multivitamin therapeutic Tablet 1 TAB PO (10:01)
[2023-01-01] MEDS: neomycin-poly-bacitracin oint 28 gm 1 APPLIC TOPICAL (10:03)
[2023-01-01 13:18] VITALS: BP 124/79; PULSE 77; RESP 15; TEMP 36.6; O2SAT 94
--- NOTE | 2023-01-01 23:24 | P.DS_ITS ---
Discharge Providers Date of Admission: 12/29/22 05:25 Date of Discharge: January 01, 2023 Attending Provider at Admission: Lucas Little MD Attending Provider at Discharge: Riley Heaton Primary Care Provider: SHIVA Andersen Diagnoses at Discharge Discharge Diagnosis (1) Alcohol withdrawal: Status: Acute (2) Leukocytosis: Status: Acute (3) Transaminitis: Status: Acute (4) Increased anion gap metabolic acidosis: Status: Acute (5) Lactic acid acidosis: Status: Acute (6) UTI (urinary tract infection): Status: Acute (7) Abrasion of sole of foot: Status: Acute (8) Rhabdomyolysis: Status: Acute Reason for Visit Reason for Visit: cp Hospital Course Hospital Course Pleasant 37-year-old lady was admitted for assessment management of alcohol with drawal, on presentation with delirium tremens/severe withdrawal, required ICU admission, close monitoring with CIWA protocol, benzodiazepines with Ativan per CIWA, also received scheduled Librium requiring several extra doses. On presentation with severe lactic acidosis, rhabdomyolysis, as well as leukocytosis, with also finding of wounds on her bilateral soles from walking barefoot outside with deep abrasions, subsequently also found to have urinary tract infection. Received IV hydration. Received empiric antibiotic coverage with ceftriaxone. Initially also with diarrhea, was negative for C. difficile, negative bacterial panel. Alcohol withdrawal gradually improved and resolved. Today she is feeling much better. She has not had any hallucinations in the last 2 days, anxiety significantly improved. Tremulousness has resolved. She remains awake, alert and lucid. Feels better and safe to discharge with plans for rehabilitation for alcohol use disorder. Wounds of bilateral soles are healing, instructed on wound care, as referred additionally for wound care follow-up. We will complete course of cefdinir for E. coli UTI. Please follow-up on the above issues and smoking cessation. Physical Exam Const: COMMON NORMALS: patient oriented x3 and alert GENERAL APPEARANCE: cooperative ORIENTATION/CONSCIOUSNESS: Yes awake OTHER: Less tremulous, jittery. Currently appears calm. Diaphoretic. HENMT: COMMON NORMALS: oropharynx normal Neck/C-Spine: COMMON NORMALS: no JVD Resp: COMMON NORMALS: normal respiratory effort and clear to auscultation bilaterally AUSCULTATION: clear to auscultation bilaterally Cardio: COMMON NORMALS: no JVD, regular rhythm, S1 normal heart sound present, S2 normal heart sound present and No murmurs present (Cardio) RATE: tachycardic RHYTHM: regular rhythm HEART SOUNDS: S1 normal heart sound present and S2 normal heart sound present GI: COMMON NORMALS: Normal to inspection, nondistended, normoactive bowel sounds present, Soft to palpation and non-tender PALPATION: Yes Soft to palpation Extremity: COMMON NORMALS: no joint enlargement and no pedal edema Neuro: COMMON NORMALS: patient oriented x3 and moves all extremities SENSORIUM/ORIENTATION: Yes alert Skin: COMMON NORMALS: no rashes or lesions noted GENERAL SKIN EXAM: no rashes or lesions noted WOUNDS: Yes wounds noted (Abrasions of epidermis BL distal soles, L worse than R, with few deeper) other (areas into the dermis. Overhanging pieces of loose/sheared off epidermis surrounding wounds. ) Discharge Data Studies Completed and Pending Completed Studies During Hospitalization Category Date Time Status XR chest 1V portable [id number] Stat Exams 12/29/22 03:42 Completed Pending at discharge Category Date Time Status Blood Culture Routine Lab 12/29/22 06:17 Results Radiology Impressions Chest X-Ray 12/29/22 03:42 IMPRESSION: No acute cardiopulmonary findings. Laboratory Results WBC 6.9 10^3/uL (4.0-10.0) 01/01/23 04:46 RBC 3.21 10^6/uL (4.1-5.3) L 01/01/23 04:46 Hgb 9.6 g/dL (11.5-15.3) L 01/01/23 04:46 Hct 29.2 % (37.0-47.0) L 01/01/23 04:46 MCV 91.0 fl (81-99) 01/01/23 04:46 MCH 29.9 pg (28.0-34.0) 01/01/23 04:46 MCHC 32.9 g/dL (30.0-36.0) 01/01/23 04:46 RDW 14.5 % (12.1-15.1) 01/01/23 04:46 Plt Count 164 10^3/cmm (130-400) 01/01/23 04:46 MPV 9.3 fL (7.4-10.4) 01/01/23 04:46 Neut % (Auto) 61.3 % 01/01/23 04:46 Lymph % (Auto) 29.2 % 01/01/23 04:46 Starr % (Auto) 6.1 % 01/01/23 04:46 Eos % (Auto) 2.9 % 01/01/23 04:46 Baso % (Auto) 0.1 % 01/01/23 04:46 Neut # (Auto) 4.24 10^3/uL (1.8-7.7) 01/01/23 04:46 Lymph # (Auto) 2.0 10^3/uL (0.8-4.8) 01/01/23 04:46 Starr # (Auto) 0.4 10^3/uL (0.2-0.9) 01/01/23 04:46 Eos # (Auto) 0.2 10^3/uL (0.0-0.8) 01/01/23 04:46 Baso # (Auto) 0.0 10^3/uL (0.0-0.1) 01/01/23 04:46 Nucleated RBC % (auto) 0 % 01/01/23 04:46 Total Counted 100 (0-100) 12/29/22 03:50 Atypical Lymphs % Not Reportable 12/29/22 03:50 Segmented Neutrophils 86 % 12/29/22 03:50 Abs Segm Neuts (Man) 23.7 10/cmm (1.6-7.1) H 12/29/22 03:50 Band Neutrophils 3.0 % 12/29/22 03:50 Abs Band Neuts (Man) 0.8 10^3/cmm (0.0-1.2) 12/29/22 03:50 Lymphocytes (Manual) 8 % 12/29/22 03:50 Monocytes (Manual) 2.0 % 12/29/22 03:50 Absolute Monocytes 0.6 10^3/cmm (0.1-0.6) 12/29/22 03:50 Eosinophils (Manual) 1 % 12/29/22 03:50 Absolute Eosinophils 0.2 10^3/cmm (0.0-0.7) 12/29/22 03:50 Basophils (Manual) Not Reportable 12/29/22 03:50 Nucleated RBCs # 0.0 /100WBC 01/01/23 04:46 Toxic Granulation 1+ H 12/29/22 03:50 Platelet Estimate Not Reportable 12/29/22 03:50 PT 14.10 SECONDS (12.1-14.9) 12/31/22 04:32 INR 1.06 (0.8-1.2) 12/31/22 04:32 Sodium 134 mmol/L (136-145) L 01/01/23 04:46 Potassium 3.2 mmol/L (3.5-5.1) L 01/01/23 04:46 Chloride 98 mmol/L (98-107) 01/01/23 04:46 Carbon Dioxide 25 mmol/L (22-29) 01/01/23 04:46 Anion Gap 14.2 (5-19) 01/01/23 04:46 BUN 4 mg/dL (6-20) L 01/01/23 04:46 Creatinine 0.5 mg/dL (0.5-0.9) 01/01/23 04:46 GFR Calculation 137.4 mL/min (90-130) H 01/01/23 04:46 Glucose 88 mg/dL (65-115) 01/01/23 04:46 Calculated Osmolality 274 mOsm/kg (285-295) L 01/01/23 04:46 Lactate 2.6 mmol/L (0.5-2.2) H 12/29/22 15:55 Calcium 7.9 mg/dL (8.5-10.5) L 01/01/23 04:46 Phosphorus 3.6 mg/dL (2.5-4.5) 01/01/23 04:46 Magnesium 2.1 mg/dL (1.7-2.3) 01/01/23 04:46 Total Bilirubin 0.5 mg/dL (0.15-1.2) 01/01/23 04:46 AST 95 U/L (0-32) H 01/01/23 04:46 ALT 59 U/L (0-33) H 01/01/23 04:46 Alkaline Phosphatase 81 U/L (35-105) 01/01/23 04:46 Creatine Kinase 1701 U/L (26-192) H* 01/01/23 04:46 CK-MB (CK-2) 6.3 ng/mL (0-5.34) H 01/01/23 04:46 CK-MB (CK-2) Rel Index 0.3 % (0.0-10.4) 01/01/23 04:46 Troponin T Baseline 6 ng/L (0-10) 12/29/22 03:50 Troponin T 120 Minute 6.74 ng/L (0-10) 12/29/22 06:17 Delta Troponin T 0.74 ABS# (0-10) 12/29/22 06:17 Troponin T Hi Sens 6Hr 6.00 ng/L (0-10) 12/29/22 10:30 Troponin T Hi Sens 6Hr Delta 0 ng/L (0-12) 12/29/22 10:30 Total Protein 5.6 g/dL (6.6-8.7) L 01/01/23 04:46 Albumin 3.2 g/dL (3.5-5.2) L 01/01/23 04:46 Globulin 2.4 g/dL (1.3-4.6) 01/01/23 04:46 Lipase 16 U/L (13-60) 12/29/22 03:50 Urine Color Yellow (Yellow) 12/29/22 05:08 Urine Appearance Clear (CLEAR) 12/29/22 05:08 Urine pH 5 (5-7) 12/29/22 05:08 Ur Specific [place] 1.025 (1.005-1.030) 12/29/22 05:08 Urine Protein Trace (Negative) 12/29/22 05:08 Urine Glucose (UA) Not Reportable 12/29/22 05:08 Urine Ketones 2+ (Negative) H 12/29/22 05:08 Urine Blood 3+ (Negative) H 12/29/22 05:08 Urine Nitrate Not Reportable 12/29/22 05:08 Urine Bilirubin Not Reportable 12/29/22 05:08 Urine Urobilinogen Not Reportable 12/29/22 05:08 Ur Leukocyte Esterase 2+ (Negative) H 12/29/22 05:08 Urine RBC 5-10 /hpf (0-2) H 12/29/22 05:08 Urine WBC 5-10 /hpf (0-5) H 12/29/22 05:08 Ur Squamous Epith Cells 10-15 /hpf (0-5) H 12/29/22 05:08 Amorphous Sediment Not Reportable 12/29/22 05:08 Urine Bacteria 2+ /hpf (NONE) H 12/29/22 05:08 Urine Opiates Screen Negative ng/mL (Negative) 12/29/22 05:08 Ur Barbiturates Screen Negative ng/mL (Negative) 12/29/22 05:08 Ur Phencyclidine Scrn Negative ng/mL (Negative) 12/29/22 05:08 Ur Amphetamines Screen Negative ng/mL (Negative) 12/29/22 05:08 U Benzodiazepines Scrn Positive ng/mL (Negative) H 12/29/22 05:08 Urine Cocaine Screen Negative ng/mL (Negative) 12/29/22 05:08 U Marijuana (THC) Screen Negative ng/mL (Negative) 12/29/22 05:08 Ethyl Alcohol 75 mg/dL (0-10) H 12/29/22 03:50 Serum Ketones Negative (Negative) 12/29/22 03:50 Hepatitis A IgM Ab Non-reactive (Nonreactive) 12/29/22 15:55 Hep Bs Antigen Non-reactive (Nonreactive) 12/29/22 15:55 Hep B Core IgM Ab Non-reactive (Nonreactive) 12/29/22 15:55 Hepatitis C Antibody Non-reactive (Nonreactive) 12/29/22 15:55 Vitals Last Vital Signs Temp 97.8 F 01/01/23 13:18 Pulse 77 01/01/23 13:18 Resp 15 01/01/23 13:18 BP 124/79 01/01/23 13:18 Pulse Ox 94 01/01/23 13:18 O2 Del Method 01/01/23 07:38 Discharge Plan Discharge Patient Disposition: Home Condition: Stable Prescriptions: New Triple Antibiotic 3.5mg-400 unit- 5,000 unit/gram Ointment 1 applic topical BID Qty: 15 3RF folic acid 1 mg Tablet 1 mg PO DAILY Qty: 90 0RF Vitamin B-1 (mononitrate) 100 mg Tablet 100 mg PO DAILY Qty: 90 0RF Thera 400 mcg Tablet 1 tab PO DAILY Qty: 90 0RF cefdinir 300 mg capsule 300 mg PO BID 3 Days Qty: 6 0RF Continued naltrexone 50 mg tablet 50 mg PO DAILY Qty: 30 2RF fluoxetine 40 mg capsule 40 mg PO QAM clonazepam 1 mg tablet 1 mg PO TID PRN (Reason: Anxiety) hydroxyzine HCl 50 mg tablet 50 mg PO BID PRN (Reason: unknown) Discharge Orders: Discharge Order (Routine); Ordered 01/01/23 Ordered By: Riley Heaton Referrals: Wound Care [Provider Group] - 4-7 days (Wounds on soles) Huyen Negron, [facility] [Primary Care Provider] - (Please call tuesday and schedule an appointment with Huyen Negron.) Patient Instructions: Alcohol Abuse, Thiamine (By mouth), Folic Acid (By mouth), Cefdinir (By mouth), How to Stop Smoking (GEN), Urinary Tract Infection in Women (GEN), Cigarette Smoking and Your Health (GEN), Alcohol Withdrawal (ED), Alcohol Dependence (GEN), Alcoholic Hepatitis (GEN) Activity Restrictions/Additional Instructions: Stop drinking alcohol. Further alcohol drinking will be detrimental to your health causing liver cirrhosis, dementia, cancer and other conditions. Follow- up for alcohol rehabilitation to help you quit. Continue supplementation with thiamine, folic acid, multivitamin. Keep wounds on your feet clean, wash with soapy water, do not soak, dry continue wound care with triple antibiotic ointment for the soles of your feet, Telfa dressing and wrapping with gauze. Follow-up with wound care clinic. Complete antibiotic course for urinary tract infection. Follow-up with your primary doctor for reassessment after alcohol withdrawal, and reassessment of liver parameters, reassessment of your kidney function after rhabdomyolysis, reassessment of your wounds, and continued assistance in abstaining from alcohol. Help with quitting smoking. Discharge Attestations Time Spent in Discharge Care*: greater than 30 min Quality Metrics Clinical Quality Measures [ No reported AMI, CVA or VTE this stay] Coding Level of Care Code Acute Code for Chg Fwd Diagnoses Alcohol withdrawal F10.939 Leukocytosis D72.829 Transaminitis R74.01 Increased anion gap metabolic acidosis E87.29 Lactic acid acidosis E87.20 UTI (urinary tract infection) N39.0 Abrasion of sole of foot S90.819A Rhabdomyolysis M62.82
== END 2023-01-01 13:15 | disposition home or self-care (01) | DRG 897 ==
LOC: ER 05:03 → ICU 05:25 → MEDSURG 12-30 21:31
PROVIDERS: Admitting Provider Internal Medicine; Emergency Provider Emergency Medicine; PCP Nurse Practitioner; Visit Provider Internal Medicine
DX: F10.131 Alcohol abuse with withdrawal delirium (principal); E87.20 Acidosis, unspecified; M62.82 Rhabdomyolysis; R44.2 Other hallucinations; N39.0 Urinary tract infection, site not specified; Y90.3 Blood alcohol level of 60-79 mg/100 ml; B96.20 Unspecified Escherichia coli [E. coli] as the cause of diseases classified elsewhere; F17.210 Nicotine dependence, cigarettes, uncomplicated; R25.1 Tremor, unspecified; R00.0 Tachycardia, unspecified; D72.829 Elevated white blood cell count, unspecified; R06.82 Tachypnea, not elsewhere classified; I10 Essential (primary) hypertension; R74.01 Elevation of levels of liver transaminase levels; S90.812A Abrasion, left foot, initial encounter; S90.811A Abrasion, right foot, initial encounter; X58.XXXA Exposure to other specified factors, initial encounter; T68.XXXA Hypothermia, initial encounter; E87.6 Hypokalemia; K70.10 Alcoholic hepatitis without ascites; R19.7 Diarrhea, unspecified
CPT/HCPCS: 36415; 71045; 80053; 80074; 80306; 80307; 81001; 82009; 82550; 82553; 83605; 83690; 83735; 84100; 84132; 84484; 85007; 85025; 85610; 87040; 87077; 87086; 87186; 87493; 87506; 93005; 96372; 96374; 96375; 96376; 99285; J0696; J1650; J2060; J2405; J3411; J3475; J3480; J7030; J7120